=== PATIENT | female | born 1985 | race Caucasian/White ===

== ENCOUNTER 2018-08-18 11:51 | Inpatient (IN) | payer OTHER ==
[2018-08-18 12:20] VITALS: BMI 25.4
--- NOTE | 2018-08-18 13:18 | HP ---
CIWA Score - Admission Criteria [facility] Guidelines: Admission for Medically Managed Detox: Requires at least one of the followin. CIWA greater than 12 2. Seizures within the past 24 hours 3. Delirium tremens within the past 24 hours 4. Hallucinations within the past 24 hours 5. Acute intervention needed for co occurring medical disorder 6. Acute intervention needed for co occurring psychiatric disorder 7. Severe withdrawal that cannot be handled at a lower level of care (continued vomiting, continued diarrhea, abnormal vital signs) requiring intravenous medication and/or fluids 8. Admission [facility] Chief Complaint: REHAB SERVICES FOR CRACK/COCAINE DEPENDENCE Allergies/Adverse Reactions: Allergies Allergy/AdvReac Type Severity Reaction Status Date / Time No Known Allergies Allergy Verified 08/18/18 12:57 History of Present Illness: PATIENT STARTED SMOKING CRACK/COCAINE AT AGE 19. PATIENT SMOKES UP TO 200 DOLLARS DAILY. LAST TIME SHE SMOKED WAS ONE WEEK AGO. PATIENT ALSO TAKES NON- PRESCRIBED XANAX TO BALANCE HER HIGH. PATIENT WOULD TAKE 0.5MG OF XANAX DAILY AND LAST DOSE WAS ONE WEEK AGO. PATIENT DETOXED ONE WEEK AGO AT [facility] AND PRESENTS TODAY FOR REHAB. PATIENT DENIES FALLS, SEIZURES. + H/O HALLUCINATIONS. DENIES SIGNIFICANT PMH. NO SI/HI OR SUICIDE ATTEMPTS REPORTED. Exam Limitations: No Limitations - Ebola screening Have you traveled outside of the country in the last 21 days: No Have you had contact with anyone from an Ebola affected area: No Have you been sick,other than usual withdrawal symptoms: No - Review of Systems Constitutional: Night Sweats, Changes in sleep EENT: reports: No Symptoms Reported Respiratory: reports: No Symptoms reported Cardiac: reports: No Symptoms Reported GI: reports: Constipated : reports: No Symptoms Reported Musculoskeletal: reports: No Symptoms Reported Integumentary: reports: No Symptoms Reported Neuro: reports: No Symptoms reported Endocrine: reports: No Symptoms Reported Hematology: reports: No Symptoms Reported Psychiatric: reports: Orientated x3, Depressed Patient History - Patient Medical History Hx Anemia: No Hx Asthma: No Hx Chronic Obstructive Pulmonary Disease (COPD): No Hx Cancer: No Hx Cardiac Disorders: No Hx Congestive Heart Failure: No Hx Hypertension: No Hx Hypercholesterolemia: No Hx Pacemaker: No HX Cerebrovascular Accident: No Hx Seizures: No Hx Dementia: No Hx Diabetes: No Hx Gastrointestinal Disorders: No Hx Liver Disease: No Hx Genitourinary Disorders: No Hx Sexually Transmitted Disorders: No Hx Renal Disease (ESRD): No Hx Thyroid Disease: No Hx Human Immunodeficiency Virus (HIV): Yes (last test 08/08/[address] [facility]) Hx Hepatitis C: No Hx Depression: No Hx Suicide Attempt: No Hx Bipolar Disorder: No Hx Schizophrenia: No - Patient Surgical History Past Surgical History: No Anesthesia Reaction: No - PPD History Previous Implant?: Yes Documented Results: Negative w/o proof PPD to be Administered?: Yes - Reproductive History Patient : No - Smoking Cessation Smoking history: Current every day smoker Have you smoked in the past 12 months: Yes Aproximately how many cigarettes per day: 3 Hx Chewing Tobacco Use: No Initiated information on smoking cessation: Yes 'Breaking Loose' booklet given: 08/18/18 - Substance & Tx. History Hx Alcohol Use: No Hx Substance Use: Yes Substance Use Type: Cocaine, Tranquilizers - Substances Abused Alprazolam (Xanax) Route: Oral Frequency: Daily Amount used: 4 MG Age of first use: 18 Date of Last Use: 08/11/18 Benzodiazepine (Klonopin) Route: Oral Frequency: Daily Amount used: 4 MG Age of first use: 18 Date of Last Use: 08/11/18 Cocaine Route: Smoking Frequency: Daily Amount used: $200 Age of first use: 18 Date of Last Use: 08/11/18 Family Disease History - Family Disease History Family Disease History: Diabetes: Mother (recovering substance abuse), Other: Father (recovering substance abuse), Mother Admission Physical Exam BHS - Vital Signs Vital Signs: Vital Signs - 24 hr 08/18/18 12:14 Temperature 98.6 F Pulse Rate 75 Respiratory 17 Rate Blood Pressure 120/68 - Physical General Appearance: Yes: No Apparent Distress, Nourished, Appropriately Dressed HEENTM: Yes: EOMI, Hearing grossly Normal, Normal ENT Inspection, Normocephalic , Normal Voice, ANDERSON, Pharynx Normal Respiratory: Yes: Chest Non-Tender, Lungs Clear, Normal Breath Sounds, No Respiratory Distress, No Accessory Muscle Use Neck: Yes: No masses,lesions,Nodules, Supple, Trachea in good position Breast: Yes: Breast Exam Deferred Cardiology: Yes: Regular Rhythm, Regular Rate, S1, S2 Abdominal: Yes: Normal Bowel Sounds, Non Tender, Soft Genitourinary: Yes: Within Normal Limits Back: Yes: Normal Inspection Musculoskeletal: Yes: full range of Motion, Gait Steady Extremities: Yes: Normal Inspection, Normal Range of Motion, Non-Tender Neurological: Yes: slip cover cutter II-XII NML intact, Fully Oriented, Alert, Motor Strength 5/5, Depressed Affect Integumentary: Yes: Normal Color, Dry, Warm Lymphatic: Yes: Within Normal Limits - Diagnostic (1) Crack cocaine use Current Visit: Yes Status: Chronic (2) Tobacco use Current Visit: Yes Status: Chronic (3) Depressed affect Current Visit: Yes Status: Suspected (4) Sleep disturbance, unspecified Current Visit: Yes Status: Chronic (5) Xanax use disorder, mild Current Visit: Yes Status: Chronic Cleared for Admission [facility] - Detox or Rehab Claeared for Rehab Admission: Yes [facility] Breath Alcohol Content Breath Alcohol Content: 0 Urine Pregancy Test - Result Urine Test Results: Negative- NO Line Present Urine Drug Screen - Results Drug Screen Negative: No Urine Drug Screen Results: BZO-Benzodiazepines Inpatient Rehab Admission - Initial Determination Are CD services needed?: Yes Free of communicable disease: Yes Not in need of hospitalization: Yes - Rehab Admission Criteria Previous failed treatment: Yes Poor recovery environment: Yes Comorbidities: Yes Lacks judgement: No Patient is meeting Inpatient Rehab admission criteria:: Yes
[2018-08-18] MEDS ORDERED: MAGNESIUM CITRATE 300 ML BOTTLE PO PRN (13:32)
[2018-08-18] MEDS ORDERED: guaiFENesin/D-METHORPHAN HB 10 ML UNIT-DOSE CUPS PO PRN (13:32)
[2018-08-18] MEDS ORDERED: MAGNESIUM HYDROX 2400MG/30ML ORAL SUSPENSION 30 ML CUP PO PRN (13:32)
[2018-08-18] MEDS ORDERED: MAG HYDROX/AL HYDROX/SIMETH 30 ML UNIT-DOSE CUP PO PRN (13:32)
[2018-08-18] MEDS ORDERED: LOPERAMIDE HCL 2 MG CAPSULE PO PRN (13:32)
[2018-08-18] MEDS ORDERED: MENTHOL/PHENOL 1 EACH UD MM PRN (13:32)
[2018-08-18] MEDS ORDERED: P-EPHED 60MG/TRIPROLIDI 2.5MG TABLET PO PRN (13:32)
[2018-08-18] MEDS: PENICILLIN V POTASSIUM 500 MG TABLET PO SCH ×2 (16:04→21:36)
[2018-08-18] MEDS: hydrOXYzine PAMOATE 50 MG CAPSULE (FP) PO PRN ×2 (16:04→21:36)
[2018-08-18 17:39] LABS: URINE APPEARANCE CLEAR; URINE BILIRUBIN NEGATIVE (<2.0 mg/dL); URINE COLOR STRAW; URINE GLUCOSE (UA) NEGATIVE (NEGATIVE); URINE KETONE NEGATIVE (NEGATIVE); URINE LEUK ESTERASE NEGATIVE (NEGATIVE); URINE NITRITE NEGATIVE (NEGATIVE); URINE PROTEIN NEGATIVE (NEGATIVE); URINE UROBILINOGEN NEGATIVE mg/dL (0.2-1.0)
[2018-08-18] MEDS: THIAMINE HCL 100 MG TABLET (FP) PO SCH (21:36)
[2018-08-18] MEDS ORDERED: MELATONIN 5 MG TABLETS PO PRN (22:00)
[2018-08-19] MEDS ORDERED: PT OWN MED DRAWER 7, Y5N ONE ×3 (03:23→19:34)
[2018-08-19] MEDS: PENICILLIN V POTASSIUM 500 MG TABLET PO SCH ×3 (06:41→21:18)
[2018-08-19] MEDS: hydrOXYzine PAMOATE 50 MG CAPSULE (FP) PO PRN ×3 (06:41→19:26)
[2018-08-19] MEDS: PRENATAL VITAMINS W/ FOLIC ACID TABLET (FP) PO SCH (09:48)
--- NOTE | 2018-08-19 09:49 | HP ---
Psychiatrist Admission - Data Date of interview: 08/19/18 Admission source: [facility] Identifying data: [facility] [address] [place], [place] [address] 33 [address] [place] single mother of 5(kids reside with family), patient resides with family,supported by family. Medical History: unremarkable Psychiatric History: Patient reports sleeping difficulties on and off. Physical/Sexual Abuse/Trauma History: denies Vital Signs: Vital Signs - 24 hr 08/18/18 08/19/18 08/19/18 12:14 00:30 03:30 Temperature 98.6 F Pulse Rate 75 Respiratory 17 16 16 Rate Blood Pressure 120/68 08/19/18 07:00 Temperature 98.1 F Pulse Rate 79 Respiratory 18 Rate Blood Pressure 114/69 Allergies/Adverse Reactions: Allergies Allergy/AdvReac Type Severity Reaction Status Date / Time No Known Allergies Allergy Verified 08/18/18 12:57 Date of last physical exam: 08/18/18 Concur with the findings of this exam: Yes - Substance Abuse/Tx History Hx Alcohol Use: Yes (socially) Hx Substance Use: Yes (marijuana since 13 yo,cocaine since 16 yo,Xanax since 17 yo) Substance Use Type: Cocaine, Marijuana Hx Substance Use Treatment: Yes (longest abstinence for 1 year) Mental Status Exam - Mental Status Exam Alert and Oriented to: Time, Place, Person Cognitive Function: Grossly Intact Patient Appearance: Well Groomed Mood: Anxious Affect: Mood Congruent, Labile Patient Behavior: Cooperative Speech Pattern: Clear Voice Loudness: Normal Thought Process: Goal Oriented Thought Disorder: Not Present Hallucinations: Denies Suicidal Ideation: Denies Homicidal Ideation: Denies Insight/Judgement: Fair Sleep: Fair Appetite: Good Muscle strength/Tone: Normal Gait/Station: Normal Psychiatric Findings - Problem List ([place] 1, 2,3) (1) Cocaine dependence Current Visit: Yes Status: Chronic (2) Anxiolytic dependence Current Visit: Yes Status: Chronic (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
[2018-08-19 10:56] LABS: ALBUMIN 3.6 g/dl (3.4-5.0); ALK PHOS 55 U/L (45-117); ANION GAP 8 MMOL/L (8-16); BILIRUBIN,TOTAL 0.2 mg/dL (0.2-1); BLOOD UREA NITROGEN 11 mg/dL (7-18); CALCIUM 8.9 mg/dL (8.5-10.1); CHLORIDE 105 mmol/L (98-107); CO2 27 mmol/L (21-32); CREATININE 0.7 mg/dL (0.55-1.3); GLUCOSE,RANDOM 108 mg/dL (74-106); POTASSIUM 4.5 mmol/L (3.5-5.1); SGOT/AST 20 U/L (15-37); SGPT/ALT 26 U/L (13-61); SODIUM 139 mmol/L (136-145); TOT PROT 6.6 g/dl (6.4-8.2)
[2018-08-19 11:11] LABS: HEMOGLOBIN 13.2 GM/dL (10.7-15.3); MCH 30.3 pg (25.7-33.7); MCHC 33.1 g/dl (32.0-36.0); MEAN CELL VOLUME 91.4 fl (80-96); MEAN PLT VOLUME 8.6 fl (7.5-11.1); PLATELET COUNT 292 K/MM3 (134-434); RBC 4.37 M/mm3 (3.60-5.2); RDW 12.8 % (11.6-15.6)
[2018-08-19] MEDS: IBUPROFEN 400 MG TABLET (FP) PO PRN (13:10)
[2018-08-19] MEDS: THIAMINE HCL 100 MG TABLET (FP) PO SCH (21:18)
[2018-08-20] MEDS: IBUPROFEN 400 MG TABLET (FP) PO PRN ×2 (01:07→13:56)
[2018-08-20] MEDS: hydrOXYzine PAMOATE 50 MG CAPSULE (FP) PO PRN ×3 (01:07→21:11)
[2018-08-20] MEDS ORDERED: PT OWN MED DRAWER 7, Y5N ONE ×2 (03:24→21:13)
[2018-08-20] MEDS: ACETAMINOPHEN 325 MG TABLET (FP) PO PRN ×4 (06:36→21:10)
[2018-08-20] MEDS: PENICILLIN V POTASSIUM 500 MG TABLET PO SCH ×3 (06:36→21:14)
[2018-08-20] MEDS: PRENATAL VITAMINS W/ FOLIC ACID TABLET (FP) PO SCH (09:42)
[2018-08-20] MEDS: THIAMINE HCL 100 MG TABLET (FP) PO SCH (21:11)
[2018-08-20] MEDS: traZODone HCL 50 MG TABLET (FP) PO SCH (21:14)
[2018-08-21] MEDS: IBUPROFEN 400 MG TABLET (FP) PO PRN ×3 (00:52→19:18)
[2018-08-21] MEDS ORDERED: PT OWN MED DRAWER 7, Y5N ONE ×3 (05:53→19:19)
[2018-08-21] MEDS: PENICILLIN V POTASSIUM 500 MG TABLET PO SCH ×3 (06:38→21:21)
[2018-08-21] MEDS: hydrOXYzine PAMOATE 50 MG CAPSULE (FP) PO PRN ×2 (06:39→21:22)
[2018-08-21] MEDS: ACETAMINOPHEN 325 MG TABLET (FP) PO PRN ×3 (06:39→21:23)
[2018-08-21] MEDS: PRENATAL VITAMINS W/ FOLIC ACID TABLET (FP) PO SCH (09:54)
[2018-08-21] MEDS: LIDOCAINE VISCOUS 2% ORAL/TOP 20 ML UNIT-DOSE CUP MM PRN ×2 (14:20→19:20)
[2018-08-21] MEDS: THIAMINE HCL 100 MG TABLET (FP) PO SCH (21:21)
[2018-08-21] MEDS: traZODone HCL 50 MG TABLET (FP) PO SCH (21:21)
[2018-08-22] MEDS: ACETAMINOPHEN 325 MG TABLET (FP) PO PRN ×3 (02:14→21:04)
[2018-08-22] MEDS: LIDOCAINE VISCOUS 2% ORAL/TOP 20 ML UNIT-DOSE CUP MM PRN ×2 (02:14→22:45)
[2018-08-22] MEDS: hydrOXYzine PAMOATE 50 MG CAPSULE (FP) PO PRN ×2 (06:45→21:04)
[2018-08-22] MEDS: PENICILLIN V POTASSIUM 500 MG TABLET PO SCH ×3 (06:45→21:04)
[2018-08-22] MEDS: IBUPROFEN 400 MG TABLET (FP) PO PRN ×3 (06:45→23:13)
[2018-08-22] MEDS: PRENATAL VITAMINS W/ FOLIC ACID TABLET (FP) PO SCH (09:58)
[2018-08-22] MEDS: THIAMINE HCL 100 MG TABLET (FP) PO SCH (21:04)
[2018-08-22] MEDS: traZODone HCL 50 MG TABLET (FP) PO SCH (21:04)
[2018-08-23] MEDS: hydrOXYzine PAMOATE 50 MG CAPSULE (FP) PO PRN (06:49)
[2018-08-23] MEDS: ACETAMINOPHEN 325 MG TABLET (FP) PO PRN ×2 (06:49→17:46)
[2018-08-23] MEDS: PENICILLIN V POTASSIUM 500 MG TABLET PO SCH (06:49)
[2018-08-23] MEDS: PRENATAL VITAMINS W/ FOLIC ACID TABLET (FP) PO SCH (10:28)
[2018-08-23] MEDS: IBUPROFEN 400 MG TABLET (FP) PO PRN ×2 (12:06→21:47)
[2018-08-23] MEDS: THIAMINE HCL 100 MG TABLET (FP) PO SCH (21:24)
[2018-08-23] MEDS: traZODone HCL 50 MG TABLET (FP) PO SCH ×2 (21:24→21:48)
[2018-08-23] MEDS: LIDOCAINE VISCOUS 2% ORAL/TOP 20 ML UNIT-DOSE CUP MM PRN (21:49)
[2018-08-24] MEDS: hydrOXYzine PAMOATE 50 MG CAPSULE (FP) PO PRN ×2 (06:17→21:15)
[2018-08-24] MEDS: ACETAMINOPHEN 325 MG TABLET (FP) PO PRN (06:17)
[2018-08-24] MEDS: PRENATAL VITAMINS W/ FOLIC ACID TABLET (FP) PO SCH (10:11)
[2018-08-24] MEDS: LIDOCAINE VISCOUS 2% ORAL/TOP 20 ML UNIT-DOSE CUP MM PRN ×2 (12:29→21:16)
[2018-08-24] MEDS ORDERED: PT OWN MED DRAWER 7, Y5N ONE (12:29)
[2018-08-24] MEDS: IBUPROFEN 400 MG TABLET (FP) PO PRN ×2 (12:30→21:16)
[2018-08-24] MEDS ORDERED: COLLOIDAL OATMEAL 1 BAR EACH TP PRN (17:42)
[2018-08-24] MEDS: THIAMINE HCL 100 MG TABLET (FP) PO SCH (21:15)
[2018-08-24] MEDS: traZODone HCL 50 MG TABLET (FP) PO SCH (21:15)
[2018-08-25] MEDS: IBUPROFEN 400 MG TABLET (FP) PO PRN ×2 (08:14→17:27)
[2018-08-25] MEDS: hydrOXYzine PAMOATE 50 MG CAPSULE (FP) PO PRN ×2 (10:03→21:11)
[2018-08-25] MEDS: PRENATAL VITAMINS W/ FOLIC ACID TABLET (FP) PO SCH (10:03)
[2018-08-25] MEDS: LIDOCAINE VISCOUS 2% ORAL/TOP 20 ML UNIT-DOSE CUP MM PRN (14:53)
[2018-08-25] MEDS: ACETAMINOPHEN 325 MG TABLET (FP) PO PRN ×2 (14:54→21:11)
[2018-08-25] MEDS: THIAMINE HCL 100 MG TABLET (FP) PO SCH (21:10)
[2018-08-25] MEDS: traZODone HCL 50 MG TABLET (FP) PO SCH (21:11)
[2018-08-26] MEDS ORDERED: PT OWN MED DRAWER 7, Y5N ONE (00:06)
[2018-08-26] MEDS: IBUPROFEN 400 MG TABLET (FP) PO PRN (02:14)
[2018-08-26 07:32] VITALS: BP 107/70; PULSE 74; TEMP 97.9
--- NOTE | 2018-08-26 09:38 | PN ---
Psychiatric Progress Note Vital Signs: Vital Signs Period Temp Pulse Resp BP Sys/W[place]don Pulse Ox Last 24 Hr 97.9 F 74 16-18 107/70 Date of Session: 08/26/18 Chief Complaint:: Discharge visit HPI: Patient addressed Cocaine and Anxiolytic dependence comorbid with Substance induced mood disorder. ROS: Unremarkable Current Medications: Active Medications Generic Name Dose Route Start Last Admin Trade Name Freq PRN Reason Stop Dose Admin Acetaminophen 650 mg 08/18/18 13:32 08/25/18 21:11 Tylenol - PO 650 mg Q4H PRN Administration FEVER Al Hydroxide/Mg Hydroxide 30 ml 08/18/18 13:32 Mylanta Oral Suspension - PO Q6H PRN DYSPEPSIA Colloidal Oatmeal 1 applic 08/24/18 17:42 08/24/18 21:17 Aveeno Soap - TP 1 applic DAILY PRN Administration HYGEINE Eucalyptus/Menthol/Phenol/Sorbitol 1 each 08/18/18 13:32 Cepastat Lozenge - MM Q4H PRN SORE THROAT Guaifenesin 10 ml 08/18/18 13:32 Robitussin Dm - PO Q6H PRN COUGH Hydroxyzine Pamoate 50 mg 08/18/18 13:32 08/25/18 21:11 Vistaril - PO 50 mg Q4H PRN Administration AGITATION Ibuprofen 400 mg 08/18/18 13:32 08/26/18 02:14 Motrin - PO 400 mg Q6H PRN Administration Pain level 4-6 Lidocaine HCl 20 ml 08/21/18 13:44 08/25/18 14:53 Xylocaine 2% Viscous Oral - MM 20 ml Q6HPO PRN Administration ORAL PAIN/MOUTH SORES Loperamide HCl 4 mg 08/18/18 13:32 Imodium - PO Q6H PRN DIARRHEA Magnesium Citrate 300 ml 08/18/18 13:32 Citroma - PO Q48H PRN CONSTIPATION Magnesium Hydroxide 30 ml 08/18/18 13:32 Milk Of Magnesia - PO DAILY PRN CONSTIPATION Melatonin 5 mg 08/18/18 22:00 08/18/18 21:36 Melatonin PO 5 mg HS PRN Administration INSOMNIA Multivit/Folic Acid/Iron 1 tab 08/19/18 10:00 08/25/18 10:03 Vitamins (Sjr) - PO 1 tab DAILY ZHANNA Administration Pseudoephedrine/Triprolidine 1 combo 08/18/18 13:32 Actifed - PO TID PRN NASAL CONGESTION Thiamine HCl 100 mg 08/18/18 22:00 08/25/18 21:10 Vitamin B1 - PO 100 mg HS ZHANNA Administration Trazodone HCl 50 mg 08/23/18 22:00 08/25/18 21:11 Desyrel - PO 50 mg HS ZHANNA Administration Current Side Effect: No Lab tests ordered: No Lab tests reviewed: Yes Provider note:: patient completed this program today.She partially met her treatment goals and will continue to address her issues on outpatient basis. Patient will continue current medications as per plan.Scripts for 30 days provided. patient identifies areas of difficulties,behaviors which contribute to relapse.Coping skills,support utilization has been discussed with the patient as well as other resourses to maintain recovery. Patient is stable for discharge today. Mental Status Exam - Mental Status Exam Alert and Oriented to: Time, Place, Person Cognitive Function: Grossly Intact Patient Appearance: Well Groomed Mood: Anxious Affect: Mood Congruent Patient Behavior: Cooperative Speech Pattern: Clear Voice Loudness: Normal Thought Process: Goal Oriented Thought Disorder: Not Present Hallucinations: Denies Suicidal Ideation: Denies Homicidal Ideation: Denies Insight/Judgement: Fair Sleep: Fair Appetite: Good Muscle strength/Tone: Normal Gait/Station: Normal Psychiatric Treatment Plan - Problem List (1) Cocaine dependence Current Visit: Yes (2) Anxiolytic dependence Current Visit: Yes (3) Substance-induced sleep disorder Current Visit: Yes
[2018-08-26] MEDS: PRENATAL VITAMINS W/ FOLIC ACID TABLET (FP) PO SCH (09:49)
== END 2018-08-26 09:50 | disposition home or self-care (01) | DRG 772 ==
LOC: YASAS 11:51 → Y3E 14:25
PROVIDERS: ADMIT Psychiatry & Neurology Psychiatry; ATTEND Psychiatry & Neurology Psychiatry
PROC: HZ42ZZZ Group Counseling for Substance Abuse Treatment, Cognitive-Behavioral (ICD-10-PCS; principal; 2018-08-18)
DX: F13.20 Sedative, hypnotic or anxiolytic dependence, uncomplicated (principal); F14.20 Cocaine dependence, uncomplicated; F17.210 Nicotine dependence, cigarettes, uncomplicated; F19.282 Other psychoactive substance dependence with psychoactive substance-induced sleep disorder; F32.9 Major depressive disorder, single episode, unspecified
CPT/HCPCS: 36415; 80053; 81003; 85027; 86593